=== PATIENT | female | born 1960 | race Caucasian/White ===

== ENCOUNTER 2017-12-14 12:18 | Emergency (ER) | payer OTHER ==
[~2017-12-14] VITALS: Ht 170.2 cm; Wt 81.6 kg
[2017-12-14 12:30] VITALS: BP 121/73
[2017-12-14] MEDS: CLINDAMYCIN 150 MG CAP PO ONE (14:48)
[2017-12-14] MEDS: oxyCODONE/APAP 5/325 MG 1 TAB TAB PO ONE (14:49)
[2017-12-14] MEDS: IBUPROFEN 600 MG TAB PO ONE (14:49)
[2017-12-14 15:16] VITALS: BP 120/78
== END 2017-12-14 15:17 | disposition home or self-care (01) ==
LOC: MED 12:18
DX: K13.79 Other lesions of oral mucosa (principal)
CPT/HCPCS: 99284